=== PATIENT | female | born 1995 | race Two or more races ===

== ENCOUNTER → 2024-04-20 | Outpatient (CLI) | payer BC, MEDICAID, SELFPAY ==
--- NOTE | 2024-04-20 09:30 | XR_ITS ---
Examination: Upper GI series with KUB Esophagram Fluoroscopy 19 spot fluoroscopic films of the esophagus and stomach Exam date and time: April 20, 2024 0938 hours INDICATIONS: Nausea and sensation something is stuck in the throat months, family history mother thyroid cancer one year ago TECHNIQUE AND FINDINGS: [employer] AP supine abdomen single view demonstrates nonobstructive bowel gas pattern Patient swallowed thin barium with 19 spot fluoroscopic films of the esophagus and stomach Fluoroscopy 0.36 minutes Primary peristaltic esophageal waves No esophageal constricting lesion Secondary esophageal contractions Mild intermittent gastroesophageal reflux There is no stricture the gastroesophageal junction There is mucosal fold thickening in the gastric antrum There is delayed intervening into the duodenal bulb Duodenal bulb exhibits spasm and irritability There is mucosal fold thickening in the duodenal sweep Jejunal loops unremarkable IMPRESSION: Esophageal dysmotility Mild intermittent gastroesophageal reflux Findings most consistent with antral gastritis and active peptic disease duodenum, no duodenal ulcer
== END | disposition home or self-care (01) ==
PROVIDERS: PCP Physician Assistant; Referring Provider Physician Assistant; Visit Provider Physician Assistant
DX: K21.9 Gastro-esophageal reflux disease without esophagitis (principal); K22.89 Other specified disease of esophagus
CPT/HCPCS: 74240